=== PATIENT | male | born 1935 | race Caucasian/White ===

== ENCOUNTER 2016-08-29 06:53 | Inpatient (IN) | payer MEDICARE ==
[~2016-08-29] VITALS: Ht 167.6 cm; Wt 111.4 kg
[2016-08-29] VITALS (15 sets, daily range): BP systolic 80–141; BP diastolic 28–95; Ht 167.6 cm; Wt 111.4 kg
[~2016-08-29 06:53] MED LIST: AMBIEN10 MG PO; ASPIRIN81 MG; ATIVAN1 MG PO; CALCIUM 600+D T1 TA1 PO; CELEXA20 MG PO; FISH OIL 1,0001 CA1 PO; FOLIC ACID1 MG PO; GARLIC1 CAP PO; INDERAL10 MG PO; ISOSORBIDE MONO30 M1 PO; LOVASTATIN40 MG PO; METHATREXATE PO; MULTIPLE VITAMI1 TA1 PO; OMEGA-3100 MG PO; OMEPRAZOLE40 MG PO; PLAVIX75 MG PO; PREDNISONE5 MG PO; PROSCAR5 MG PO; VITAMIN B-121000 MCG PO; VITAMIN C WITH500 M1 PO; ZESTRIL40 MG PO
[2016-08-29 08:15] LABS: BASOPHILS 0.3 % (0.0-2.0); EOSINOPHILS 1.4 % (0-7); HEMATOCRIT 48.5 % (42.0-54.0); HEMOGLOBIN 15.5 g/dL (13.5-17.5); IMMATURE GRANULOCYTES 0.9 % (0-5); LYMPHOCYTES 42.4 % (15-50); MCH 33.7 pg (26.0-34.0); MCV 105.4 fL (80.0-100.0); MEAN PLATELET VOLUME 11.3 fL (7.4-10.4); MONOCYTES 1.9 % (2-11); NEUTROPHILS 53.1 % (40-80); PLATELET COUNT 210 10x3/uL (130-400); RDW 16.1 % (11.5-14.5); WBC 10.2 10x3/uL (4.8-10.8)
[2016-08-29 08:17] LABS: APPEARANCE CLEAR (CLEAR); BILIRUBIN NEGATIVE (NEGATIVE); COLOR YELLOW (YELLOW); GLUCOSE NEGATIVE (NEGATIVE); KETONE NEGATIVE (NEGATIVE); LEUKOCYTE ESTERASE NEGATIVE (NEGATIVE); NITRITE NEGATIVE (NEGATIVE); PROTEIN 2+ mg/dL (NEGATIVE); UROBILINOGEN NORMAL (NORMAL)
[2016-08-29 08:27] LABS: ALBUMIN 2.7 g/dL (3.4-5.0); ANION GAP 11.3 mmol/L (8-16); BILIRUBIN - TOTAL 0.43 mg/dL (0.2-1.3); CALCIUM 9.2 mg/dL (8.5-10.1); CARBON DIOXIDE 31.1 mmol/L (21.0-32.0); CREATININE - SERUM 1.1 mg/dL (0.6-1.3); MAGNESIUM - SERUM 2.1 mg/dL (1.8-2.4); POTASSIUM - SERUM 4.4 mmol/L (3.5-5.1); PROTEIN - SERUM 5.8 g/dL (6.4-8.2)
--- NOTE | 2016-08-29 09:36 | NUR ---
RECIEVED REPORT AT THIS TIME FROM YUMI[facility]. WAITING TO RECIEVE PT TO UNIT.
--- NOTE | 2016-08-29 09:43 | NUR ---
VENT SETTINGS AT THIS TIME: AC 24, VT 600, FIO2 100%, PEEP 5.
--- NOTE | 2016-08-29 09:43 | NUR ---
ARRIVED AT THIS TIME VIA BED ACCOMPANIED BY HOSPITAL STAFF. PT IS INTUBATED, OXYGEN SATURATION AT 85% WITH VENT SETTINGS FIO2 AT 100%. WILL CONTINUE PLAN OF CARE.
[2016-08-29 12:35] LABS: AMYLASE - SERUM 207 U/L (25-115); LIPASE 336 U/L (73-393)
--- NOTE | 2016-08-29 12:40 | NUR ---
1220: PT THIRD DEGREE HEART BLOCK, EKG OBTAINED, EXTERNAL PACEMAKER PLACED, CALLED AND NOTIFIED. 1225: LOST PULSE; CODE BLUE CALLED; SEE CODE BLUE SHEET 1235:CALLED ANA AGAIN; ORDERS RECIEVED
[2016-08-29 12:49] LABS: CREATINE KINASE 947 UL (21-232)
[2016-08-29 12:52] LABS: CKMB 70.8 U/L (0.0-3.6); TROPONIN-I 20.701 ng/mL (0.000-0.060)
--- NOTE | 2016-08-29 12:55 | NUR ---
PT CODED AGAIN AT THIS TIME; SEE CODE SHEET.
--- NOTE | 2016-08-29 13:18 | NUR ---
CODE ENDED AT THIS TIME, PT PRNOUNCED, PT FAMILY IS AWARE.
--- NOTE | 2016-08-29 13:36 | NUR ---
CALLED [facility] OFFICE AT THIS TIME, SPOKE WITH FREDERICK. SHE STATED SHE WOULD NOTIFY DON AND HE WOULD CALL BACK SHORTLY.
--- NOTE | 2016-08-29 13:50 | NUR ---
SPOKE WITH DON, BALJEET LEMUS. BALJEET STATED THIS IS NOT A CORNERS CASE. ALSO NOTED PT FAMILY REQUEST FOR PT TO GO TO [facility]. WILL FAX NECESSARY FORMS FOR DON AT THIS TIME.
--- NOTE | 2016-08-29 13:58 | NUR ---
CALLED [facility] AT THIS TIME, SPOKE WITH JENNIFER SHAFER. SHE STATED PT DOES NOT MEET CRITERIA FOR [facility] BECAUSE OF AGE AND THAT WE ARE FREE TO RELEASE PT BODY TO HOME. REFERENCE NUMBER IS [id number].
--- NOTE | 2016-08-29 14:16 | NUR ---
SPOKE WITH DR PEREZ AT THIS TIME TO NOFIFY THAT PT HAS . ALSO PAGED DR HICKEY AND NOTIFIED HIM WELL. FAMILY IN ROOM AT BEDSIDE.
--- NOTE | 2016-08-29 14:37 | NUR ---
CALLED [facility], SPOKE WITH TAMIE SOLANO. SHE STATED THEY WOULD BE BY FOR PT BODY. THIS IS THE HOME WHICH PT FAMILY HAVE SELECTED. FAMILY AT BEDSIDE.
--- NOTE | 2016-08-29 15:30 | NUR ---
[facility] HAS PICKED UP BODY AT THIS TIME PER FAMILY REQUEST. CONSENTS FOR RELEASE OF BODY HAS BEEN SIGNED BY PT DAUGHTER, GILLES MCGEE. NOTED PT DID NOT HAVE ANY PERSONAL ITEMS TO BE TAKEN. NO FURTHER ACTIONS.
--- NOTE | 2016-08-31 17:02 | NUR ---
Per CMS protocol, restraint report logged into data base.
--- NOTE | 2016-09-24 13:49 | CN ---
PATIENT NAME:MARU DIALLO MEDICAL RECORD: [id number] : 31 LOCATION:[facility][id number] ADMIT DATE: 08/29/16 ACCOUNT: [id number] CONSULTING PHYSICIAN: JASON MCLAIN MD REFERRING PHYSICIAN: ERIBERTO AMES MD DATE OF CONSULTATION: 08/29/2016 Consultation note CONSULT REQUESTING PHYSICIAN: Dr. Ames. REASON FOR CONSULTATION: Vent management, status post cardiopulmonary arrest. HISTORY OF PRESENT ILLNESS: Mr. Diallo is an 81-year-old gentleman, history was taken from the patient's notes and talking to the nursing staff. According to the , the patient is okay yesterday. This morning, the patient with fever and chills and he developed severe nausea and vomiting. He also vomited on his way by the ambulance. On arrival to the ER, the patient is on V-tach, V-fib. He was shocked twice and the patient was resuscitated and orally intubated. He also vomited in the ER. Chest radiographs showed extensive infiltrate on the right side. Now, the patient is orally intubated and sedated. REVIEW OF SYSTEMS: The detail is not obtainable. PAST MEDICAL HISTORY: 1. Coronary artery disease, status post stent placement. 2. Obstructive sleep apnea. The patient is noncompliant. 3. Hypertension. PAST SURGICAL HISTORY: 1. He had a CABG times 3. 2. Cholecystectomy. 3. Hemorrhoidectomy. 4. He has had multiple cardiac catheterizations and stent placement. ALLERGIES: HE IS ALLERGIC TO INFLUENZA VIRUSES VACCINATION. 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 PRESENT MEDICATIONS: Omeprazole, prednisone of 5 mg, zolpidem, folic acid and multivitamins. PERSONAL AND SOCIAL HISTORY: The patient is a nondrinker. He is a nonsmoker. FAMILY HISTORY: Significant for diabetes mellitus. PHYSICAL EXAMINATION: GENERAL: The patient is now orally intubated and sedated. VITAL SIGNS: Temperature 98.6, blood pressure 110/72, respirations 21, he was on assist control mechanical ventilation. HEENT: Conjunctivae are pink. Sclerae are nonicteric. NECK: Supple. No JVD. CHEST: There are crackles on the right side. There is a decreased breath sound on the right right side. HEART: Rhythm regular, normal sound, no murmur. CONSULT REPORT [id number] MARU DIALLO ABDOMEN: Distended. The bowel sounds are muffled. RECTAL: Deferred. EXTREMITIES: No cyanosis, no clubbing, no pedal edema. SKIN: Warm, normal turgor. CENTRAL NERVOUS SYSTEM: The patient is orally intubated and sedated. The peripheral pulses of very weak. IMPRESSION: 1. Acute hypoxic hypercapnic respiratory failure. 2. Status post cardiopulmonary arrest, ventricular fibrillation, ventricular tachycardia. 3. Hypotension, possible septic shock. 4. Acute respiratory acidosis. 5. Pneumonia, right upper lobe, right lower lobe possible aspiration when the patient was vomiting. 6. Nausea and vomiting, rule out acute abdominal, rule out ischemic bowel. 7. Coronary artery disease. 8. Obstructive sleep apnea, the patient is noncompliant. 9. Ventricular tachycardia. RECOMMENDATION: 1. We will start him on Zosyn, vancomycin and Levaquin and we will proceed with fiberoptic bronchoscopy. We will continue the mechanical ventilation. We will check the CPK, the x-ray, KUB has been done. We will get the CT scan of the abdomen to rule out ischemic bowel. We will check amylase and lipase level. We will consult surgery. 2. Fluid resuscitation and vasopressor. 3. Blood cultures. 4. We will get a central line, get a CVP at 10-12. Dr. Ames, once again thanks for involving me in the care of Mr. Diallo TRANSINT:[id number] Voice Confirmation ID: [id number] DOCUMENT ID: [id number] JASON MCLAIN MD at 1349 CC: ERIBERTO AMES MD [id number] DICTATION DATE: 08/29/16 1132 CONCRETE GRINDER OPERATOR: 08/29/16 1214 DIS IN 08/29/16 [facility] [address] [place] [address]
--- NOTE | 2016-10-01 09:40 | PN ---
PATIENT:MARU NEUMANN MEDICAL RECORD: [id number] LOCATION:[facility] D.230 ADMISSION DATE: 08/29/16 PROGRESS NOTE DATE OF SERVICE: 08/29/2016 I was asked to see the patient in consultation earlier today. The patient before I was able to see him in consultation. I was asked to place a central line. The patient did have peripheral IV access. I was asked to see him for abdominal pain. The patient was mottled and septic. He coded 3 times. It appeared he was having a myocardial infarction. He developed a cardiac rhythm problem. He was too unstable to go to the operating room. There was a plan to place a temporary pacemaker before I would have entertained the idea of conveying him to the operating room. It appears that his disease process was too far long to be salvageable through an operation. TRANSINT:[id number] Voice Confirmation ID: [id number] DOCUMENT ID: [id number] JOSEPHINE HICKEY MD at 0940 CC: [id number] DICTATION DATE: 08/29/161912 BOILER OPERATOR: 08/29/16 2019 DIS IN 08/29/16 [facility] [address] [place] [address]
== END 2016-08-29 16:02 | DRG 871 ==
LOC: D.ER 06:53 → D.ICU 09:26
PROVIDERS: Emergency Medicine; Internal Medicine Pulmonary Disease; ADMIT Family Medicine
PROC: 5A12012 Performance of Cardiac Output, Single, Manual (ICD-10-PCS; principal; 2016-08-29)
PROC: 0BH17EZ Insertion of Endotracheal Airway into Trachea, Via Natural or Artificial Opening (ICD-10-PCS; 2016-08-29)
PROC: 5A1935Z Respiratory Ventilation, Less than 24 Consecutive Hours (ICD-10-PCS; 2016-08-29)
PROC: 0T9B70Z Drainage of Bladder with Drainage Device, Via Natural or Artificial Opening (ICD-10-PCS; 2016-08-29)
PROC: 5A12012 Performance of Cardiac Output, Single, Manual (ICD-10-PCS; 2016-08-29)
PROC: 5A12012 Performance of Cardiac Output, Single, Manual (ICD-10-PCS; 2016-08-29)
DX: A41.9 Sepsis, unspecified organism (principal); J96.02 Acute respiratory failure with hypercapnia; J18.9 Pneumonia, unspecified organism; K55.059 Acute (reversible) ischemia of intestine, part and extent unspecified; J96.01 Acute respiratory failure with hypoxia; R65.21 Severe sepsis with septic shock; I47.2 Ventricular tachycardia; I44.2 Atrioventricular block, complete; E87.2 Acidosis; E78.5 Hyperlipidemia, unspecified; G47.33 Obstructive sleep apnea (adult) (pediatric); I25.10 Atherosclerotic heart disease of native coronary artery without angina pectoris; I10 Essential (primary) hypertension; R14.0 Abdominal distension (gaseous); R57.0 Cardiogenic shock; E66.9 Obesity, unspecified; Z78.1 Physical restraint status; Z91.19 Patient's noncompliance with other medical treatment and regimen; Z95.5 Presence of coronary angioplasty implant and graft; Z95.1 Presence of aortocoronary bypass graft